=== PATIENT | male | born 1985 | race Caucasian/White ===

== ENCOUNTER 2019-08-29 15:27 | Emergency (ER) | payer BC ==
[2019-08-29 15:42] VITALS: BP 138/86; PULSE 89; TEMP 98.4; BMI 36.3
--- NOTE | 2019-08-29 15:42 | PDOC ---
Rapid Medical Evaluation Chief Complaint: Chest Pain Time Seen by Provider: 08/29/19 15:38 Medical Evaluation: Allergies Allergy/AdvReac Type Severity Reaction Status Date / Time No Known Allergies Allergy Verified 07/05/19 21:57 08/29/19 15:40 CC: chest tightness and "racing heart " , hx asthma and checked hr and it was 120. no exertion or use of inhaler durind or before episode. States feels slightly anxious Exam: vss, lcta, ekg nsr Plan: ekg Discharge Disposition - Diagnosis Chest tightness - Discharge Dispostion Condition at time of disposition: Good - Referrals - Patient Instructions - Post Discharge Activity
[2019-08-29] MEDS ORDERED: diazePAM 5 MG TABLET PO ONE (16:02)
[2019-08-29] MEDS ORDERED: diazePAM 5 MG TABLET ONE (16:06)
[2019-08-29] MEDS ORDERED: MAG HYDROX/AL HYDROX/SIMETH 30 ML UNIT-DOSE CUP PO ONE (16:50)
[2019-08-29] MEDS ORDERED: MAG HYDROX/AL HYDROX/SIMETH 30 ML UNIT-DOSE CUP ONE (17:01)
--- NOTE | 2019-08-29 17:25 | PDOC ---
History of Present Illness - General Chief Complaint: Chest Pain Stated Complaint: CHEST PAIN Time Seen by Provider: 08/29/19 15:38 - History of Present Illness Initial Comments: 08/29/19 17:23 33-year-old male with a past medical history of GERD and anxiety presents for evaluation of chest pain x1 week Past History - Medical History Allergies/Adverse Reactions: Allergies Allergy/AdvReac Type Severity Reaction Status Date / Time No Known Allergies Allergy Verified 07/05/19 21:57 Home Medications: Ambulatory Orders Omeprazole 20 mg PO DAILY 08/29/19 Anemia: No Asthma: Yes Cancer: No Cardiac Disorders: No CVA: No COPD: No CHF: No DVT: No Dementia: No Diabetes: No Dialysis: No GI Disorders: No Disorders: No HTN: No Hypercholesterolemia: No Kidney Stones: No Liver Disease: No Psychiatric Problems: No Seizures: No Thyroid Disease: No Lung CA: No - Surgical History Abdominal Surgery: No Appendectomy: No Cardiac Surgery: No Cholecystectomy: No Gastric Stapling: No GI Surgery: No Lung Surgery: No Neurologic Surgery: No - Immunization History Immunization Up to Date: Yes - Psycho-Social/Smoking History Smoking History: Never smoked Have you smoked in the past 12 months: No Information on smoking cessation initiated: No - Substance Abuse Hx (Audit-C & DAST Scrn) How often the patient has a drink containing alcohol: Never Score: In Men: 4 or > Positive; In Women: 3 or > Positive: 0 Screen Result (Pos requires Nsg. Audit-10AR): Negative In the last yr the pt used illegal drug/Rx for NonMed reason: No Score: Yes response is considered Positive: 0 Screen Result (Positive result requires Nsg. DAST-10): Negative Review of Systems - Review of Systems Cardiac (ROS): Yes: Chest Pain ABD/GI: Yes: Indigestion *Physical Exam - Vital Signs Last Vital Signs Temp Pulse Resp BP Pulse Ox 98.4 F 89 18 138/86 98 08/29/19 15:39 08/29/19 15:39 08/29/19 15:39 08/29/19 15:39 08/29/19 15:39 - Physical Exam 08/29/19 17:24 GENERAL: The patient is awake, alert, and fully oriented, in no acute distress. HEAD: Normal with no signs of trauma. EYES: sclera anicteric, conjunctiva clear. ENT: Ears normal tympanic membranes normal oropharynx clear uvula midline NECK: Normal range of motion LUNGS: Breath sounds equal, clear to auscultation bilaterally. No wheezes, and no crackles. HEART: S1 and S2 without murmur, rub or gallop. ABDOMEN: Soft, nontender, normoactive bowel sounds. No guarding, no rebound. No masses. EXTREMITIES: Normal range of motion, no edema. No clubbing or cyanosis. No cords, erythema, or tenderness. NEUROLOGICAL: Cranial nerves II through XII grossly intact. PSYCH: Normal mood, normal affect. SKIN: Warm, Dry, normal turgor, no rashes or lesions noted. ED Treatment Course - Medications Given in the ED: ED Medications Discontinued Medications Generic Name Dose Route Start Last Admin Trade Name Guilhermeq PRN Reason Stop Dose Admin Al Hydroxide/Mg Hydroxide 30 ml 08/29/19 16:50 08/29/19 17:03 Mylanta Oral Suspension - PO 08/29/19 16:51 30 ml ONCE ONE Administration Diazepam 5 mg 08/29/19 16:02 08/29/19 16:09 Valium - PO 08/29/19 16:03 5 mg ONCE ONE Administration Medical Decision Making - Medical Decision Making 08/29/19 17:24 Mild relief with Valium and complete relief with Maalox follow-up with GI and primary care physician I have reviewed the pathophysiology with the patient. They are in agreement with the treatment plan all questions were answered to their satisfaction. Understanding for follow-up without fail was also conveyed to the patient. Again they are in agreement. Discharge - Discharge Information Problems reviewed: Yes Clinical Impression/Diagnosis: Chest tightness, GERD (gastroesophageal reflux disease), Acute anxiety Condition: Improved Disposition: HOME - Admission No - Follow up/Referral Referrals: Sailaja Hoffmann [Primary Care Provider] - Aren Lieberman MD [Staff Physician] - - Patient Discharge Instructions Additional Instructions: Return to the emergency room for worsening issues and without fail follow-up with your primary care physician as well as gastroenterology in 1 to 2 days. Continue your omeprazole at home. - Post Discharge Activity
--- NOTE | 2019-08-30 10:42 | EKG ---
Test Reason : Blood Pressure : / mmHG Vent. Rate : 079 BPM Atrial Rate : 079 BPM P-R Int : 150 ms QRS Dur : 084 ms QT Int : 372 ms P-R-T Axes : 047 -05 025 degrees QTc Int : 426 ms NORMAL SINUS RHYTHM POSSIBLE LEFT ATRIAL ENLARGEMENT BORDERLINE ECG WHEN COMPARED WITH ECG OF 05-JUL-2019 22:42, NO SIGNIFICANT CHANGE WAS FOUND Confirmed by MD Fuller Daniel ([id number]) on 08/30/2019 10:42:00 AM Referred By: Confirmed By:Jeff Fuller MD
== END 2019-08-29 17:41 | disposition home or self-care (01) ==
LOC: JER 15:27 → SUPCPDRO 15:27 → JER 17:41
DX: K21.9 Gastro-esophageal reflux disease without esophagitis (principal); F41.9 Anxiety disorder, unspecified
CPT/HCPCS: 71046-TC-FY; 93005; 93010; 99284-25

== ENCOUNTER 2023-08-31 00:16 | Emergency (ER) | payer BC ==
[2023-08-31 00:19] VITALS: BP 145/95; PULSE 71; RESP 18; TEMP 98.7; BMI 32.1
[2023-08-31] MEDS ORDERED: ONDANSETRON 4 MG/2 ML VIAL ONE (01:03)
[2023-08-31] MEDS ORDERED: morphine SULFATE 4 MG/ML VIAL ONE ×2 (01:03→02:01)
[2023-08-31] MEDS: morphine CARPU-JECT 4 MG/1 ML DISP.SYRIN IVPUSH ONE ×2 (01:10→02:06)
[2023-08-31] MEDS: ONDANSETRON 4 MG/2 ML VIAL IVPUSH ONE (01:11)
[2023-08-31 01:12] LABS: BASO % 0.5 % (0-2.0); EOS % 3.5 % (0-4.5); HEMATOCRIT 43.7 % (35.4-49); HEMOGLOBIN 15.1 GM/dL (11.7-16.9); LYMPH % 31.9 % (8-40); MCH 30.2 pg (25.7-33.7); MCHC 34.6 g/dl (32.0-35.9); MEAN CELL VOLUME 87.1 fl (80-96); MEAN PLT VOLUME 6.4 fl (7.5-11.1); NEUT % 55.1 % (42.8-82.8); PLATELET COUNT 222 10^3/uL (134-434); RBC 5.02 M/mm3 (4.00-5.60); RDW 13.2 % (11.9-15.9); WHITE BLOOD COUNT 6.7 K/mm3 (4.0-10.0)
[2023-08-31 01:17] LABS: INR 1.05 (0.83-1.09); PROTHROMBIN TIME (PATIENT) 11.8 SEC (9.7-13.0)
[2023-08-31] MEDS: SODIUM CHLORIDE 0.9% 500 ML INFUS.BAG IV ONE (01:22)
[2023-08-31] MEDS ORDERED: valACYclovir HCL 500 MG TABLET (FP) ONE (01:24)
[2023-08-31] MEDS: valACYclovir HCL 500 MG TABLET (FP) PO ONE (01:28)
[2023-08-31 01:30] LABS: CALCIUM 9.2 mg/dL (8.5-10.1); POTASSIUM 4.5 mmol/L (3.5-5.1)
[2023-08-31 01:31] LABS: BLOOD UREA NITROGEN 12.5 mg/dL (7-18)
[2023-08-31 02:26] LABS: EPI CELLS 1 /uL (0-25.1); HYALINE CASTS 0 /uL (0-3.1); URINE APPEARANCE CLEAR; URINE BACTERIA 8 /uL (0-1359); URINE BILIRUBIN NEGATIVE (NEGATIVE); URINE COLOR YELLOW; URINE GLUCOSE (UA) NEGATIVE (NEGATIVE); URINE KETONE NEGATIVE (NEGATIVE); URINE LEUK ESTERASE NEGATIVE (NEGATIVE); URINE NITRITE NEGATIVE (NEGATIVE); URINE PROTEIN 1+ (NEGATIVE); URINE RBC 4126 /uL (0-23.9); URINE WBC 14 /uL (0-25.8)
[2023-08-31] MEDS ORDERED: KETOROLAC TROMETHAMINE 15 MG/ML VIAL ONE (03:59)
[2023-08-31] MEDS: KETOROLAC TROMETHAMINE 15 MG/ML VIAL IVPUSH ONE (04:10)
== END 2023-08-31 05:03 | disposition home or self-care (01) ==
LOC: JER 00:16
PROC: 3E033GC Introduction of Other Therapeutic Substance into Peripheral Vein, Percutaneous Approach (ICD-10-PCS; principal; 2023-08-31)
PROC: 3E0333Z Introduction of Anti-inflammatory into Peripheral Vein, Percutaneous Approach (ICD-10-PCS; 2023-08-31)
PROC: 3E033NZ Introduction of Analgesics, Hypnotics, Sedatives into Peripheral Vein, Percutaneous Approach (ICD-10-PCS; 2023-08-31)
PROC: 3E033NZ Introduction of Analgesics, Hypnotics, Sedatives into Peripheral Vein, Percutaneous Approach (ICD-10-PCS; 2023-08-31)
DX: R10.31 Right lower quadrant pain (principal); N20.0 Calculus of kidney; B02.9 Zoster without complications; R11.2 Nausea with vomiting, unspecified; R19.7 Diarrhea, unspecified; R68.83 Chills (without fever)
CPT/HCPCS: 36415; 74177-TC; 80048; 81003; 85025; 85610; 86850; 86900; 86901; 99285-25

== ENCOUNTER 2023-09-18 09:20 | Emergency (ER) | payer BC ==
[2023-09-18 09:25] VITALS: TEMP 97.5; BMI 29.7
[2023-09-18] MEDS ORDERED: ACETAMINOPHEN INJECTION 100 ML IVPB ONE (09:49)
[2023-09-18] MEDS ORDERED: TAMSULOSIN HCL 0.4 MG CAP ONE (10:08)
[2023-09-18] MEDS: ACETAMINOPHEN 1000 MG/100 ML BAG IVPB ONE (10:10)
[2023-09-18] MEDS: TAMSULOSIN HCL 0.4 MG CAP PO ONE (10:10)
[2023-09-18 10:17] LABS: BASO % 0.3 % (0-2.0); EOS % 2.9 % (0-4.5); HEMATOCRIT 42.2 % (35.4-49); HEMOGLOBIN 14.9 GM/dL (11.7-16.9); LYMPH % 34.9 % (8-40); MCH 30.9 pg (25.7-33.7); MCHC 35.2 g/dl (32.0-35.9); MEAN CELL VOLUME 87.6 fl (80-96); MEAN PLT VOLUME 6.8 fl (7.5-11.1); MONO % 6.7 % (3.8-10.2); NEUT % 55.2 % (42.8-82.8); PLATELET COUNT 239 10^3/uL (134-434); RBC 4.81 M/mm3 (4.00-5.60); RDW 13.1 % (11.9-15.9); WHITE BLOOD COUNT 7.5 K/mm3 (4.0-10.0)
[2023-09-18 10:34] LABS: EPI CELLS 1 /uL (0-25.1); HYALINE CASTS 0 /uL (0-3.1); PH,URINE 5.5 (5.0-8.0); URINE APPEARANCE CLEAR; URINE BACTERIA 3 /uL (0-1359); URINE BILIRUBIN NEGATIVE (NEGATIVE); URINE COLOR YELLOW; URINE GLUCOSE (UA) NEGATIVE (NEGATIVE); URINE KETONE NEGATIVE (NEGATIVE); URINE LEUK ESTERASE NEGATIVE (NEGATIVE); URINE NITRITE NEGATIVE (NEGATIVE); URINE PROTEIN NEGATIVE (NEGATIVE); URINE RBC 4114 /uL (0-23.9); URINE UROBILINOGEN 0.2 mg/dL (0.2-1.0); URINE WBC 12 /uL (0-25.8)
[2023-09-18 10:35] LABS: POTASSIUM 4.4 mmol/L (3.5-5.1)
[2023-09-18 10:38] LABS: ALBUMIN 4.2 g/dl (3.4-5.0); BLOOD UREA NITROGEN 13.5 mg/dL (7-18); CALCIUM 9.2 mg/dL (8.5-10.1)
[2023-09-18 10:43] LABS: BILIRUBIN,TOTAL 1.2 mg/dL (0.2-1); TOT PROT 7.4 g/dl (6.4-8.2)
[2023-09-18] MEDS ORDERED: ONDANSETRON 4 MG/2 ML VIAL ONE (11:37)
[2023-09-18] MEDS ORDERED: morphine SULFATE 4 MG/ML VIAL ONE (11:37)
[2023-09-18] MEDS: ONDANSETRON 4 MG/2 ML VIAL IVPUSH ONE (11:55)
[2023-09-18] MEDS: morphine CARPU-JECT 4 MG/1 ML DISP.SYRIN IVPUSH ONE (11:55)
[2023-09-18 12:33] VITALS: BP 105/65; PULSE 67; RESP 20
== END 2023-09-18 12:51 | disposition home or self-care (01) ==
LOC: JER 09:20
PROC: 3E033NZ Introduction of Analgesics, Hypnotics, Sedatives into Peripheral Vein, Percutaneous Approach (ICD-10-PCS; principal; 2023-09-18)
PROC: 3E033NZ Introduction of Analgesics, Hypnotics, Sedatives into Peripheral Vein, Percutaneous Approach (ICD-10-PCS; 2023-09-18)
PROC: 3E033GC Introduction of Other Therapeutic Substance into Peripheral Vein, Percutaneous Approach (ICD-10-PCS; 2023-09-18)
DX: N20.0 Calculus of kidney (principal); R11.0 Nausea
CPT/HCPCS: 36415; 76775-TC; 80053; 81003; 85025; 87086; 99284-25; J0131

== ENCOUNTER → 2023-11-23 | Day surgery (SDC) | payer BC ==
[2023-11-19 11:02] VITALS: BMI 29.0
[~2023-11-23] MED LIST: MIDAZOLAM HCL 2 MG/2 ML SINGLE DOSE VIAL ONE; ONDANSETRON 4 MG/2 ML VIAL ONE; SODIUM CHLORIDE 0.9% P/F 10 ML VIAL IJ ONE; ceFAZolin SODIUM 1 GM VIAL ONE
[2023-11-23 15:42] VITALS: TEMP 97.6
[2023-11-23 15:45] VITALS: BP 117/68; PULSE 68; RESP 18
== END | disposition home or self-care (01) ==
LOC: JASU-SURG 04:09
PROVIDERS: ATTEND Urology
PROC: 0TF7XZZ Fragmentation in Left Ureter, External Approach (ICD-10-PCS; principal; 2023-11-23 13:49)
DX: N20.1 Calculus of ureter (principal)

== ENCOUNTER 2024-02-27 05:12 | Inpatient (IN) | payer BC ==
[2024-02-27] MEDS ORDERED: KETOROLAC TROMETHAMINE 30 MG/1 ML VIAL ONE (05:35)
[2024-02-27] MEDS ORDERED: ONDANSETRON 4 MG/2 ML VIAL ONE ×4 (05:36→14:16)
[2024-02-27] MEDS: ONDANSETRON 4 MG/2 ML VIAL IVPUSH ONE ×2 (05:39→06:28)
[2024-02-27] MEDS: KETOROLAC TROMETHAMINE 30 MG/1 ML VIAL IVPUSH ONE (05:39)
[2024-02-27] MEDS: SODIUM CHLORIDE 1,000 ML IV STA (05:59)
[2024-02-27] MEDS ORDERED: morphine SULFATE 4 MG/ML VIAL ONE (06:11)
[2024-02-27] MEDS: morphine SULFATE 4 MG/ML VIAL IVPUSH ONE ×2 (06:27→06:33)
[2024-02-27 06:31] LABS: BASO % 0.4 % (0-2.0); HEMOGLOBIN 15.2 GM/dL (11.7-16.9); LYMPH % 28.9 % (8-40); MCH 29.4 pg (25.7-33.7); MCHC 32.9 g/dl (32.0-35.9); MEAN CELL VOLUME 89.2 fl (80-96); MEAN PLT VOLUME 7.3 fl (7.5-11.1); MONO % 10.5 % (3.8-10.2); NEUT % 57.2 % (42.8-82.8); PLATELET COUNT 227 10^3/uL (134-434); RBC 5.16 M/mm3 (4.00-5.60); RDW 13.1 % (11.9-15.9); WHITE BLOOD COUNT 8.2 K/mm3 (4.0-10.0)
[2024-02-27 07:01] LABS: POTASSIUM 3.9 mmol/L (3.5-5.1)
[2024-02-27 07:03] LABS: BLOOD UREA NITROGEN 11.2 mg/dL (7-18); CALCIUM 9.1 mg/dL (8.5-10.1)
[2024-02-27 07:04] LABS: ALBUMIN 4.3 g/dl (3.4-5.0)
[2024-02-27 07:07] LABS: CREATININE 1.2 mg/dL (0.55-1.3)
[2024-02-27 07:08] LABS: BILIRUBIN,TOTAL 1.3 mg/dL (0.2-1); TOT PROT 7.7 g/dl (6.4-8.2)
[2024-02-27 07:25] LABS: INR 1.02 (0.83-1.09); PROTHROMBIN TIME (PATIENT) 11.5 SEC (9.7-13.0)
[2024-02-27 07:28] LABS: ACTIVATED PTT 33.2 SECONDS (25.2-36.5)
[2024-02-27 08:06] LABS: EPI CELLS 10 /uL (0-25.1); HYALINE CASTS 1 /uL (0-3.1); PH,URINE 6.5 (5.0-8.0); URINE APPEARANCE CLEAR; URINE BACTERIA 11 /uL (0-1359); URINE BILIRUBIN NEGATIVE (NEGATIVE); URINE COLOR YELLOW; URINE GLUCOSE (UA) NEGATIVE (NEGATIVE); URINE KETONE 1+ (NEGATIVE); URINE LEUK ESTERASE NEGATIVE (NEGATIVE); URINE NITRITE NEGATIVE (NEGATIVE); URINE PROTEIN TRACE (NEGATIVE); URINE RBC 321 /uL (0-23.9); URINE WBC 6 /uL (0-25.8)
[2024-02-27] MEDS ORDERED: TAMSULOSIN HCL 0.4 MG CAP ONE (09:33)
[2024-02-27] MEDS ORDERED: CEFTRIAXONE 1 G/50 ML PREMIX 50 ML IVPB ONE (09:33)
[2024-02-27] MEDS ORDERED: MORPHINE SULFATE 2 MG/ML SYRINGE ONE (09:33)
[2024-02-27] MEDS: morphine CARPU-JECT 2 MG/1 ML DISP.SYRIN IVPUSH ONE (09:40)
[2024-02-27] MEDS: SODIUM CHLORIDE 0.9% 500 ML INFUS.BAG IV ONE (09:40)
[2024-02-27] MEDS: TAMSULOSIN HCL 0.4 MG CAP PO ONE (09:42)
[2024-02-27] MEDS: CEFTRIAXONE 1 GM in DEXTROSE 5%-WATER - 100 ML IVPB ONE (09:43)
[2024-02-27] MEDS: SODIUM CHLORIDE 1,000 ML IV SCH ×2 (10:45→15:07)
[2024-02-27] MEDS: ONDANSETRON 4 MG/2 ML VIAL IVPUSH PRN (11:05)
[2024-02-27 13:22] VITALS: BMI 32.1
[2024-02-27] MEDS ORDERED: MIDAZOLAM HCL 2 MG/2 ML SINGLE DOSE VIAL ONE (14:16)
[2024-02-27] MEDS ORDERED: SUCCINYLCHOLINE CHLORIDE 200 MG/10 ML SYRINGE ONE (14:16)
[2024-02-27] MEDS ORDERED: DEXAMETHASONE SOD PHOSPHATE 4 MG/1 ML VIAL ONE (14:16)
[2024-02-27] MEDS ORDERED: LIDOCAINE HCL/PF 2% SDV 5ML VIAL ONE (14:16)
[2024-02-27] MEDS ORDERED: PROPOFOL 20 ML ONE (14:16)
[2024-02-27] MEDS ORDERED: ceFAZolin SODIUM 1 GM VIAL ONE (14:26)
[2024-02-27] MEDS: ceFAZolin SODIUM 1 GM VIAL IVPB ONE (14:27)
[2024-02-27] MEDS ORDERED: ONDANSETRON 4 MG/2 ML VIAL IVPUSH PRN (14:44)
[2024-02-27] MEDS: LACTATED RINGERS SOLUTION 1,000 ML IV SCH (16:18)
[2024-02-27 16:36] VITALS: BP 121/84; PULSE 79; RESP 20; TEMP 98.8
[2024-02-27] MEDS: oxyCODONE HCL 5 MG TABLET PO ONE (17:48)
== END 2024-02-27 19:20 | disposition home or self-care (01) | DRG 661 ==
LOC: JER 05:12 → JERBED 09:44 → J7W 11:58
PROVIDERS: ADMIT Internal Medicine; ATTEND Internal Medicine
PROC: 0T778DZ Dilation of Left Ureter with Intraluminal Device, Via Natural or Artificial Opening Endoscopic (ICD-10-PCS; principal; 2024-02-27 14:00)
PROC: 0TC78ZZ Extirpation of Matter from Left Ureter, Via Natural or Artificial Opening Endoscopic (ICD-10-PCS; 2024-02-27 14:00)
PROC: BT1FZZZ Fluoroscopy of Left Kidney, Ureter and Bladder (ICD-10-PCS; 2024-02-27 14:00)
DX: N13.2 Hydronephrosis with renal and ureteral calculous obstruction (principal); K21.9 Gastro-esophageal reflux disease without esophagitis; R10.9 Unspecified abdominal pain
CPT/HCPCS: 36415; 74176-TC; 76000-TC-FY; 80053; 81003; 85025; 85610; 85730; 87086; 93005; 93010; 94760; 99285-25; C2617